=== PATIENT | male | born 1950 | race Caucasian/White ===

== ENCOUNTER 2016-10-21 09:04 | Emergency (ER) | payer OTHER ==
[~2016-10-21] VITALS: Ht 188 cm; Wt 140.6 kg
[2016-10-21] MEDS ORDERED: TOPROL XL50 MG PO (09:17)
[2016-10-21] MEDS ORDERED: LISINOPRIL20 MG PO (09:18)
[2016-10-21] MEDS ORDERED: MECLIZINE HCL25 MG PO (09:18)
[2016-10-21] MEDS ORDERED: SPIRIVA18 MCG INH (09:19)
[2016-10-21] MEDS ORDERED: COMFORT PAC-MEL15 MG PO (09:19)
[2016-10-21] MEDS ORDERED: ADVIL200 MG PO (09:20)
[2016-10-21] MEDS ORDERED: PROAIR RESPICL90 MCG INH (09:20)
[2016-10-21] MEDS ORDERED: SUPER B-50 COM1 EACH PO (09:21)
[2016-10-21] MEDS ORDERED: ASPIR-LOW81 MG PO (09:21)
[2016-10-21] MEDS ORDERED: VITAMIN D35000 UNI1 PO (09:21)
[2016-10-21] MEDS ORDERED: PREDNISONE20 MG PO (10:39)
[2016-10-21] MEDS ORDERED: ZITHROMAX250 MG PO (10:39)
--- NOTE | 2016-10-21 19:00 | EKG ---
[facility] [address] [place], [place] [address] Signed Normal sinus rhythm Normal ECG No previous ECGs available Confirmed by OLYA PARIKH MD ([id number] on 10/21/2016 7:00:28 PM Electronically Signed By: OLYA PARIKH MD 10/21/16 1900 PATIENT NAME: ALKA MADSEN Electrocardiogram DATE OF : 54 PHYSICIAN: OLYA PARIKH MD REPORT #: [id number] REPORT IS CONFIDENTIAL AND NOT TO BE RELEASED WITHOUT AUTHORIZATION
== END 2016-10-21 10:55 | disposition home or self-care (01) ==
LOC: ED 09:04
DX: J44.0 Chronic obstructive pulmonary disease with (acute) lower respiratory infection (principal); J18.9 Pneumonia, unspecified organism; I10 Essential (primary) hypertension; F17.200 Nicotine dependence, unspecified, uncomplicated; Z88.8 Allergy status to other drugs, medicaments and biological substances; Z79.899 Other long term (current) drug therapy; Z79.82 Long term (current) use of aspirin
CPT/HCPCS: 71020; 80053; 83880; 84484; 85025; 93005; 93010; 99284; J7512